=== PATIENT | male | born 1975 | race Hispanic/Latino ===

== ENCOUNTER 2021-03-15 14:35 | Observation (INO) | payer SELFPAY ==
[~2021-03-15] VITALS: Ht 160 cm; Wt 68.2 kg
[2021-03-15 15:53] LABS: BASOPHILS % (AUTO) 0.2 % (0.0-5.0); EOSINOPHILS % (AUTO) 1.7 % (0.0-8.0); HEMATOCRIT 41.3 % (42-54); MEAN CORPUSCULAR HEMOGLOBIN 30.9 pg (27.0-33.0); MEAN CORPUSCULAR HGB CONC 33.7 g/dL (32.0-36.0); MEAN CORPUSCULAR VOLUME 91.8 fL (79-99); MONOCYTES % (AUTO) 7.7 % (3.0-13.0); NEUTROPHILS % (AUTO) 74.8 % (40.0-77.0); PLATELET COUNT (AUTO) 380 K/uL (130-400); RED CELL DISTRIBUTION WIDTH 13.5 % (11.0-15.5); WHITE BLOOD COUNT (AUTO) 13.9 K/uL (4.8-10.8)
[2021-03-15 16:02] LABS: CREATININE 0.9 mg/dL (0.5-1.5); POTASSIUM 3.7 mmol/L (3.5-5.1)
[2021-03-15 16:07] LABS: ALBUMIN 3.8 g/dL (3.5-5.0); BILIRUBIN,TOTAL 0.1 mg/dL (0.2-1.0); CRP QUANTITATIVE 25.8 mg/L (0.00-9.0); TOTAL PROTEIN, SERUM 7.6 g/dL (6.0-8.3)
[2021-03-15] MEDS ORDERED: 0.9%NACL 1000ML 1,000 ML IV ONE ×2 (17:00→17:08)
[2021-03-15] MEDS: CLINDAMYCIN IVPB 600MG/50ML 50 ML IV SCH (17:00)
[2021-03-15] MEDS ORDERED: ONDANSETRON 4MG INJ IVP ONE (17:00)
[2021-03-15] MEDS ORDERED: MORPHINE 2 MG SYG IVP ONE (17:00)
[2021-03-15] MEDS ORDERED: MORPHINE 2 MG SYG ONE (17:07)
[2021-03-15] MEDS ORDERED: ONDANSETRON 4MG INJ ONE (17:07)
[2021-03-15] MEDS ORDERED: CLINDAMYCIN IVPB 600MG/50ML 50 ML IV ONE (17:07)
[2021-03-15 17:12] LABS: APPEARANCE,URINE Clear (CLEAR); BILIRUBIN,URINE Negative (NEGATIVE); COLOR,URINE Yellow (YELLOW); GLUCOSE, URINE (UA) Negative (NEGATIVE); KETONES,URINE Trace mg/dL (NEGATIVE); LEUKOCYTE ESTERASE ,URINE Negative (NEGATIVE); NITRATE,URINE Negative (NEGATIVE); OCCULT BLOOD,URINE Nonhemolyzed Trace (NEGATIVE); PH,URINE 6.5 (5.0-8.0); PROTEIN,URINE Trace mg/dL (NEGATIVE)
[2021-03-15] MEDS ORDERED: IOHEXOL-350 75 ML VIAL IV ONE (17:38)
[2021-03-15 17:50] LABS: BACTERIA,URINE Rare /HPF (None Seen); SQUAMOUS EPITHELIAL CELL,UR None Seen /HPF (0-2); WBC,URINE 0-1 /HPF (0-1)
[2021-03-15] MEDS ORDERED: HYDROMORPHONE 1 MG INJ IV PRN (20:30)
[2021-03-15] MEDS ORDERED: VANCOMYCIN PROTOCOL PER PHARMACY IV PRN (20:30)
[2021-03-15] MEDS ORDERED: ACETAMINOPHEN 325 MG TAB PO PRN (20:30)
[2021-03-15] MEDS ORDERED: MORPHINE 2 MG SYG IV PRN (20:30)
[2021-03-15] MEDS: FAMOTIDINE 20MG VIAL IV SCH (21:37)
[2021-03-15] MEDS: 0.9%NACL 1000ML 1,000 ML IV SCH (21:37)
[2021-03-15] MEDS: ZOSYN 3.375GM+NS 50ML 50 ML IV SCH (21:38)
[2021-03-15] MEDS: VANCOMYCIN 1G/250ML KIT 250 ML IV SCH (22:50)
[2021-03-16] VITALS (14 sets, daily range): BP systolic 85–150; BP diastolic 32–82
[2021-03-16] MEDS: CLINDAMYCIN IVPB 600MG/50ML 50 ML IV SCH ×2 (02:57→08:56)
[2021-03-16] MEDS: 0.9%NACL 1000ML 1,000 ML IV SCH (04:27)
[2021-03-16] MEDS: ZOSYN 3.375GM+NS 50ML 50 ML IV SCH ×2 (04:27→13:41)
[2021-03-16 06:48] LABS: INR 0.96 (0.85-1.15); PROTHROMBIN TIME 10.5 SEC (9.6-11.6)
[2021-03-16 06:49] LABS: PARTIAL THROMBOPLASTIN TIME 32.8 SEC (26.3-35.5)
[2021-03-16 06:54] LABS: CREATININE 0.9 mg/dL (0.5-1.5); MAGNESIUM 2.3 mg/dL (1.80-2.40); POTASSIUM 4.1 mmol/L (3.5-5.1)
[2021-03-16 08:05] LABS: BASOPHILS % (AUTO) 0.3 % (0.0-5.0); EOSINOPHILS % (AUTO) 2.4 % (0.0-8.0); LYMPHOCYTES % (AUTO) 20.7 % (21.0-51.0); MEAN CORPUSCULAR HEMOGLOBIN 30.9 pg (27.0-33.0); MEAN CORPUSCULAR HGB CONC 32.8 g/dL (32.0-36.0); MEAN CORPUSCULAR VOLUME 94.2 fL (79-99); MONOCYTES % (AUTO) 7.3 % (3.0-13.0); NEUTROPHILS % (AUTO) 68.6 % (40.0-77.0); PLATELET COUNT (AUTO) 355 K/uL (130-400); RED BLOOD CELL COUNT(AUTO) 4.14 MIL/uL (4.50-6.20); RED CELL DISTRIBUTION WIDTH 13.7 % (11.0-15.5); WHITE BLOOD COUNT (AUTO) 9.5 K/uL (4.8-10.8)
[2021-03-16] MEDS ORDERED: FLU VACC QS2021-22(6MOS UP)/PF 60 MCG/0.5 ML ML IM SCH (08:30)
[2021-03-16] MEDS: VANCOMYCIN 1G/250ML KIT 250 ML IV SCH (08:57)
[2021-03-16] MEDS: FAMOTIDINE 20MG VIAL IV SCH (08:57)
[2021-03-16] MEDS ORDERED: FLU VACC QS2021-22(6MOS UP)/PF 60 MCG/0.5 ML ML IM ONE (09:00)
[2021-03-16] MEDS ORDERED: CEFAZOLIN SODIUM 1 GM VIAL ONE (10:26)
[2021-03-16] MEDS ORDERED: LIDOCAINE HCL 1% MDV 50ML VIAL ONE (10:26)
[2021-03-16] MEDS ORDERED: BUPIVACAINE/EPI/PF 0.25% 30ML VIAL IJ ONE (10:26)
[2021-03-16] MEDS ORDERED: LIDOCAINE PF 100MG/5ML (2%) SYRINGE 5ML ONE (10:55)
[2021-03-16] MEDS ORDERED: FENTANYL CITRATE PF 50 MCG/1 ML 2ML VIAL ONE (10:56)
[2021-03-16] MEDS ORDERED: PROPOFOL 10 MG/ML 20ML VIAL IV ONE (10:56)
[2021-03-16] MEDS ORDERED: MIDAZOLAM HCL 1 MG/ML 2ML VIAL ONE (10:56)
[2021-03-16] MEDS ORDERED: DEXAMETHASONE SOD PHOSPHATE 4 MG/ML 1ML VIAL ONE (11:07)
[2021-03-16] MEDS ORDERED: ONDANSETRON 4MG INJ ONE (11:07)
[2021-03-16] MEDS ORDERED: GLYCOPYRROLATE 1 MG/5 ML SYRINGE ONE (11:29)
[2021-03-16] MEDS ORDERED: LIDOCAINE HCL 2% PF 20 ML JEL DISP.SYRIN MM ONE (12:11)
[2021-03-16] MEDS ORDERED: OXYCODONE/ACETAMIN 5/325MG TAB PO PRN (14:00)
[2021-03-16] MEDS ORDERED: CLIN-141 PO (16:45)
[2021-03-16] MEDS ORDERED: KETO10 PO (16:45)
[2021-03-16] MEDS ORDERED: LEVO500T90 PO (16:58)
== END 2021-03-16 18:00 | disposition home or self-care (01) ==
LOC: EDH 14:35 → EDHIP 14:36 → UNDOADMOB 20:12 → 3BH 03-16 03:33
PROVIDERS: ADMIT Internal Medicine; ATTEND Internal Medicine
DX: L02.31 Cutaneous abscess of buttock (principal); Z20.822 Contact with and (suspected) exposure to COVID-19; D72.829 Elevated white blood cell count, unspecified; F12.90 Cannabis use, unspecified, uncomplicated; Z90.49 Acquired absence of other specified parts of digestive tract; Z79.899 Other long term (current) drug therapy; Z98.890 Other specified postprocedural states; Z23 Encounter for immunization; Z71.85 Encounter for immunization safety counseling
CPT/HCPCS: 10061; 36415 ×2; 74177; 76857; 80048; 80053; 81001; 83735; 84100; 85025 ×2; 85610; 85730; 86140; 87070 ×2; 87076 ×2; 87077 ×2; 87186 ×2; 87205; 87635; 87804 ×2; 87880; 90471; 90686; 96361; 96365; 96366 ×2; 96367; 96368; 96375; 96376; 99285; A4452; G0378 ×20; J0690; J1100; J2001; J2250; J2405 ×2; J2543 ×3; J2704; J3010; J3370 ×2; J3490 ×8; J7030 ×3; Q9967

== ENCOUNTER 2021-07-30 15:27 | Emergency (ER) | payer OTHER ==
[~2021-07-30] VITALS: Ht 162.6 cm; Wt 65.8 kg
[~2021-07-30 15:27] MED LIST: CLIN-141 PO; KETO10 PO; LEVO500T90 PO
[2021-07-30 15:30] VITALS: BP 123/73
== END 2021-07-30 19:31 | disposition left against medical advice (07) ==
LOC: EDH 15:27
DX: S51.852A Open bite of left forearm, initial encounter (principal); Z53.21 Procedure and treatment not carried out due to patient leaving prior to being seen by health care provider; W54.0XXA Bitten by dog, initial encounter; Y93.89 Activity, other specified; Y92.89 Other specified places as the place of occurrence of the external cause; Y99.8 Other external cause status

== ENCOUNTER 2021-10-09 18:05 | Emergency (ER) | payer OTHER ==
[~2021-10-09] VITALS: Ht 157.5 cm; Wt 65.8 kg
[~2021-10-09 18:05] MED LIST changes: +LEVO-70 PO; -LEVO500T90 PO
[2021-10-09 18:11] VITALS: BP 175/101
== END 2021-10-09 18:55 | disposition left against medical advice (07) ==
LOC: EDH 18:05
DX: M25.552 Pain in left hip (principal); Z53.21 Procedure and treatment not carried out due to patient leaving prior to being seen by health care provider